=== PATIENT | female | born 2000 | race African-American/Black ===

== ENCOUNTER 2021-09-13 03:06 | Day surgery (SDC) | payer OTHER ==
[2021-09-13] MEDS ORDERED: hydrALAZINE 20 MG/ML VIAL SLOW IVP PRN (04:18)
[2021-09-13 05:17] LABS: Bilirubin Neg (Negative); Blood, Urine Negative (Negative); Clarity Clear (Clear); Glucose, Urine (Dipstick) Normal (Negative); Ketone, Urine Negative (Negative); Leukocyte Negative (Negative); Nitrite Negative (Negative); Protein, Urine (Dipstick) Negative (Neg-Trace); Urobilinogen Normal mg/dL (Less than 2); pH, Urine 6.5 (5.0-9.0)
[2021-09-13 05:21] LABS: Hemoglobin 10.9 g/dL (12.0-15.5); Mean Corpuscular Hemoglobin 27.3 pg (27.0-33.0); Mean Corpuscular Volume 82.5 fl (81.6-98.3); Mean Platelet Volume 9.8 fl (7.4-10.4); Platelet Count 271 10x3/uL (150-450); RBC Distribution Width 14.8 % (11.5-14.5); White Blood Cell (WBC) Count 8.2 10x3/uL (3.5-10.5)
[2021-09-13 05:25] LABS: Amphetamine Not Detected (NotDetected); Barbiturates Screen Not Detected (NotDetected); Benzodiazepine Screen Not Detected (NotDetected); Cocaine Metabolite Screen Not Detected (NotDetected); Methadone Not Detected (NotDetected); Methamphetamine Not Detected (NotDetected); Opiate Screen Not Detected (NotDetected); Oxycodone Screen Not Detected (NotDetected); Phencyclidine (PCP) Not Detected (NotDetected); THC/Cannabinoid Screen Not Detected (NotDetected); Tricyclic Screen Not Detected (NotDetected)
[2021-09-13 05:35] LABS: Urine Culture Reflex No No
[2021-09-13 05:37] LABS: Bacteria/HPF Rare-Few HPF (None Seen); RBC/HPF 0-3 HPF (0-3); Squamous Epithelial 0-3 HPF (0-3); WBC/HPF 0-3 HPF (0-3)
[2021-09-13 05:55] LABS: Syphilis Antibody Nonreactive (Nonreactive); Syphilis Antibody Index 0.02 S/CO (<1.00 Non-Reactive)
[2021-09-13 12:40] LABS: HBSAB Concentration Less than 8.00 mIU/mL; Hep B Surf AB Non-Reactive (NonReactive); Hep C IgG Ab Non-Reactive (NonReactive); Hep C Index 0.15 S/CO (0-0.79)
== END 2021-09-13 06:15 | disposition home or self-care (01) ==
LOC: CSHLD/OP 03:06
PROVIDERS: ATTEND Emergency Medicine
DX: O99.891 Other specified diseases and conditions complicating pregnancy (principal); R10.9 Unspecified abdominal pain; Z3A.36 36 weeks gestation of pregnancy
CPT/HCPCS: 36415; 51701; 80306; 85027; 86706; 86762; 86780; 86803; 86850; 86900; 86901; 87077; 87081; 87480; 87510; 87660; 99282

== ENCOUNTER 2021-10-12 07:27 | Inpatient (IN) | payer OTHER ==
[~2021-10-12 07:27] MED LIST: Bupivacaine 0.25% HCL 30 ML VIAL ONE; Bupivacaine HCl 0.5%/Epinephrine 1:200,000/PF 30 ml Vial ONE; ePHEDrine Sulfate 50 MG/10 ML VIAL ONE
[2021-10-12] MEDS ORDERED: Butorphanol Tartrate 1 MG/ML VIAL SLOW IVP PRN (08:50)
[2021-10-12] MEDS ORDERED: hydrALAZINE 20 MG/ML VIAL SLOW IVP PRN (08:50)
[2021-10-12] MEDS ORDERED: Morphine 10 MG/ML VIAL IM SCH (09:00)
[2021-10-12] MEDS ORDERED: Promethazine HCl 25 MG/ML VIAL IM SCH (09:00)
[2021-10-12] MEDS ORDERED: Morphine 10 MG/ML VIAL SLOW IVP SCH (09:00)
[2021-10-12] MEDS ORDERED: Morphine 10 MG/ML VIAL ONE (09:48)
[2021-10-12] MEDS ORDERED: Acetaminophen 500 MG TAB PO PRN (10:33)
[2021-10-12] MEDS ORDERED: Ondansetron PF 4 MG/2 ML Vial IVP PRN ×2 (10:33→14:20)
[2021-10-12] MEDS ORDERED: Ibuprofen 800 MG TAB PO PRN (10:33)
[2021-10-12] MEDS ORDERED: Promethazine HCl 25 MG/ML VIAL IM PRN ×2 (10:33→14:20)
[2021-10-12] MEDS ORDERED: Lidocaine 1% (PF) 30 ML VIAL SC PRN (10:33)
[2021-10-12] MEDS ORDERED: NS w/ Oxytocin 30 units 500 ML IV SCH (10:45)
[2021-10-12] MEDS ORDERED: Penicillin G Potassium 5 MILL.UNITS in Sodium Chloride 0.9% 100 ML IVPB SCH (10:45)
[2021-10-12] MEDS ORDERED: Penicillin G Potassium 5 MILL.UNITS VIAL ONE (11:04)
[2021-10-12 11:24] VITALS: BMI 29.5
[2021-10-12 11:30] LABS: Hemoglobin 11.4 g/dL (12.0-15.5); Mean Corpuscular HGB CONC 32.7 g/dL (32.0-36.0); Mean Corpuscular Hemoglobin 26.3 pg (27.0-33.0); Mean Corpuscular Volume 80.4 fl (81.6-98.3); Mean Platelet Volume 10.2 fl (7.4-10.4); Platelet Count 319 10x3/uL (150-450); RBC Distribution Width 16.7 % (11.5-14.5); Red Blood Cell (RBC) Count 4.34 10x6/uL (3.90-5.03); White Blood Cell (WBC) Count 7.3 10x3/uL (3.5-10.5)
[2021-10-12 12:03] LABS: Hep B Surf Ag Non-Reactive S/CO (NonReactive); Syphilis Antibody Nonreactive (Nonreactive); Syphilis Antibody Index 0.03 S/CO (<1.00 Non-Reactive)
[2021-10-12 12:11] LABS: HBSAg Index 0.15 S/CO (0-0.99)
[2021-10-12] MEDS ORDERED: Morphine 4 MG/ML VIAL SLOW IVP SCH (13:30)
[2021-10-12] MEDS ORDERED: Lactated Ringer's 500 ML IV PRN (14:20)
[2021-10-12] MEDS ORDERED: Naloxone HCl 0.4 mg/ml Vial IVP PRN ×2 (14:20)
[2021-10-12] MEDS ORDERED: diphenhydrAMINE 50 MG/ML VIAL IVP PRN (14:20)
[2021-10-12] MEDS ORDERED: Moisturizing Cream (Eucerin) 113 GM JAR TOP PRN (14:20)
[2021-10-12] MEDS ORDERED: ePHEDrine Sulfate 50 MG/10 ML VIAL SLOW IVP PRN (14:20)
[2021-10-12] MEDS ORDERED: Fentanyl 2 mcg/Bup 0.1% Cadd 100 ML ONE (14:29)
[2021-10-12] MEDS ORDERED: Fentanyl 2 mcg/Bupivacaine 0.1% Cassette 100 ML EPIDURAL SCH (14:30)
[2021-10-12] MEDS ORDERED: Communication Order-Pharmacy FS SCH (14:30)
[2021-10-12] MEDS: Penicillin G 2.5 MILL.units 2.5 MILL.UNITS in Premix Bag 1 BAG IVPB SCH ×2 (17:31→21:23)
[2021-10-12] MEDS: Lactated Ringer's 1,000 ML IV SCH ×2 (17:31→21:25)
[2021-10-12 22:25] LABS: SARS-CoV-2 NAA Rapid Test Not Detected (NotDetected)
[2021-10-13 05:43] LABS: pH (Cord, venous) 7.304 (7.250-7.350)
[2021-10-13] MEDS ORDERED: Ondansetron PF 4 MG/2 ML Vial IVP PRN (07:14)
[2021-10-13] MEDS ORDERED: Bisacodyl 10 MG SUPP PR PRN (07:14)
[2021-10-13] MEDS ORDERED: Milk Of Magnesia 30 ML UDCUP PO PRN (07:14)
[2021-10-13] MEDS ORDERED: diphenhydrAMINE 25 MG CAP PO PRN (07:14)
[2021-10-13] MEDS ORDERED: Preparation H Ointment 28 GM TUBE PR PRN (07:14)
[2021-10-13] MEDS ORDERED: Boostrix 0.5 ML (Tdap) VIAL IM ONE (07:14)
[2021-10-13] MEDS ORDERED: Methylergonovine 0.2 MG/ML VIAL IM PRN (07:14)
[2021-10-13] MEDS ORDERED: Benzocaine-Menthol 82.5 ML CAN TOP PRN (07:14)
[2021-10-13] MEDS ORDERED: Misoprostol 200 MCG TAB VAG PRN (07:14)
[2021-10-13] MEDS ORDERED: hydrALAZINE 20 MG/ML VIAL SLOW IVP PRN (07:14)
[2021-10-13] MEDS ORDERED: Lanolin Ointment 7 GM TUBE TOP PRN (07:14)
[2021-10-13] MEDS ORDERED: NS w/ Oxytocin 30 units 500 ML IV SCH (07:14)
[2021-10-13] MEDS ORDERED: Promethazine HCl 25 MG/ML VIAL IM PRN (07:14)
[2021-10-13] MEDS: Ibuprofen 800 MG TAB PO SCH ×2 (07:53→16:19)
[2021-10-13] MEDS: Lactated Ringer's 1,000 ML IV SCH (08:34)
[2021-10-13] MEDS: Penicillin G 2.5 MILL.units 2.5 MILL.UNITS in Premix Bag 1 BAG IVPB SCH (08:34)
[2021-10-13] MEDS: Ferrous Sulfate 325 MG TAB PO SCH ×2 (08:36→17:12)
[2021-10-13] MEDS: Prenatal Vitamin 1 TAB PO SCH (09:14)
[2021-10-13] MEDS: Docusate 100 MG CAP PO SCH ×2 (09:14→21:02)
[2021-10-13] MEDS: Acetaminophen 325 MG TAB PO PRN (21:02)
[2021-10-14] MEDS: Ibuprofen 800 MG TAB PO SCH ×4 (00:19→23:27)
[2021-10-14] MEDS: Acetaminophen 325 MG TAB PO PRN (04:58)
[2021-10-14] MEDS: Prenatal Vitamin 1 TAB PO SCH (08:00)
[2021-10-14] MEDS: Docusate 100 MG CAP PO SCH ×2 (08:00→20:45)
[2021-10-14] MEDS: Ferrous Sulfate 325 MG TAB PO SCH ×2 (08:01→14:36)
[2021-10-15] MEDS: Ferrous Sulfate 325 MG TAB PO SCH (07:36)
[2021-10-15] MEDS: Ibuprofen 800 MG TAB PO SCH (07:46)
[2021-10-15 07:50] VITALS: BP 135/98; TEMP 98.6
[2021-10-15] MEDS: Prenatal Vitamin 1 TAB PO SCH (09:47)
[2021-10-15] MEDS: Docusate 100 MG CAP PO SCH (09:47)
[2021-10-15] MEDS ORDERED: Ondansetron PF 4 MG/2 ML Vial ONE ×2 (11:50→12:24)
[2021-10-15] MEDS ORDERED: Ketorolac Tromethamine 30 MG/ML VIAL ONE (11:50)
[2021-10-15] MEDS ORDERED: Oxytocin 10 UNITS/ML VIAL ONE (11:50)
[2021-10-15] MEDS ORDERED: Dexamethasone 4 mg/ml Vial ONE (11:50)
[2021-10-15] MEDS ORDERED: Morphine PF 10 MG/10 ML VIAL ONE (11:50)
== END 2021-10-15 12:05 | disposition home or self-care (01) | DRG 807 ==
LOC: CSHLD/OP 07:27 → CSHLD 11:00 → CSHPED 10-13 08:10
PROVIDERS: ADMIT Obstetrics & Gynecology; ATTEND Obstetrics & Gynecology
PROC: 10H07YZ Insertion of Other Device into Products of Conception, Via Natural or Artificial Opening (ICD-10-PCS; 2021-10-12)
PROC: 10E0XZZ Delivery of Products of Conception, External Approach (ICD-10-PCS; principal; 2021-10-13)
DX: O99.824 Streptococcus B carrier state complicating childbirth (principal); Z37.0 Single live birth; Z20.822 Contact with and (suspected) exposure to COVID-19; Z3A.39 39 weeks gestation of pregnancy; O76 Abnormality in fetal heart rate and rhythm complicating labor and delivery; O71.89 Other specified obstetric trauma; O99.324 Drug use complicating childbirth; F12.90 Cannabis use, unspecified, uncomplicated
CPT/HCPCS: 36415; 51702; 82805; 85027; 86780; 86850; 86900; 86901; 87340; 99285; J1100; J1200; J1885; J2270; J2274; J2405; J2540; J2550; J2590; J3490; J7120; S0020; U0002